=== PATIENT | male | born 1955 | race Caucasian/White ===

== ENCOUNTER 2018-09-02 20:22 | Emergency (ER) | payer MEDICAID ==
--- NOTE | 2018-09-02 20:59 | ED Physician Documentation ---
PD HPI MALE - Stated complaint Stated Complaint: MALE /CATH - Chief complaint Chief Complaint: General - History obtained from History obtained from: Patient, Family - History of Present Illness Timing - onset: Today Timing - duration: Hours Timing - details: Gradual onset, Still present Associated symptoms: Unable to urinate, Bob problem PD HPI MALE CONTRIB FACTORS: Indwelling catheter Similar symptoms before: Diagnosis (clogged catheter) - Additional information Additional information: 63-year-old male with type 2 diabetes has an indwelling Bob catheter present that he has had for the past year. He has had to have this changed about every 6 weeks and is periodically had this clogged up and stop draining. He feels that this is happened again where he is not getting any urine output from the catheter and feels his bladder is full. He does have some sediment in the catheter which happens frequently and he is not on antibiotic prophylaxis. He does not feel ill and he has not had fever. He states that his blood sugars have been running normal. Review of Systems Constitutional: denies: Fever Eyes: denies: Decreased vision Ears: denies: Ear pain Nose: denies: Congestion Throat: denies: Sore throat Respiratory: denies: Cough GI: reports: Nausea. denies: Abdominal Pain, Vomiting : reports: Bob Problem Skin: denies: Rash Musculoskeletal: denies: Neck pain, Back pain, Extremity pain PD PAST MEDICAL HISTORY - Past Medical History Past Medical History: Yes Cardiovascular: None Endocrine/Autoimmune: Type 2 diabetes, Other : Indwelling catheter HEENT: Chronic vision loss Psych: None Musculoskeletal: None Other Past Medical History: neuropathy - Past Surgical History Past Surgical History: Yes - Allergies Allergies/Adverse Reactions: Allergies Allergy/AdvReac Type Severity Reaction Status Date / Time nitrofurantoin AdvReac Nausea Verified 09/02/18 20:28 [From Macrobid] Sulfa (Sulfonamide AdvReac Nausea Verified 09/02/18 20:28 Antibiotics) - Social History Does the pt smoke?: No Smoking Status: Never smoker Does the pt drink ETOH?: No Does the pt have substance abuse?: No - Immunizations Immunizations are current?: Yes - POLST Patient has POLST: No PD ED PE NORMAL - Vitals Vital signs reviewed: Yes (tachy and hypertensive ) - General General: Alert and oriented X 3, No acute distress, Well developed/nourished - HEENT HEENT: Atraumatic, PERRL, EOMI - Cardiac Cardiac: RRR, No murmur - Respiratory Respiratory: No respiratory distress, Clear bilaterally - Abdomen Abdomen: Soft, Non tender - Back Back: No CVA TTP, No spinal TTP - Derm Derm: Normal color, Warm and dry, No rash - Extremities Extremities: No deformity, No edema - Neuro Neuro: Alert and oriented X 3, 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, No motor deficit, No sensory deficit, Normal speech Eye Opening: Spontaneous Motor: Obeys Commands Verbal: Oriented GCS Score: 15 - Psych Psych: Normal mood, Normal affect Results - Vitals Vitals: Vital Signs - 24 hr 09/02/18 20:23 Temperature 36.0 C L Heart Rate 105 H Respiratory 19 Rate Blood Pressure 156/80 H O2 Saturation 98 Oxygen O2 Source Room air - Labs Labs: Laboratory Tests 09/02/18 21:05 Urine Color YELLOW Urine Clarity HAZY Urine pH 5.5 Ur Specific [place] 1.010 Urine Protein NEGATIVE Urine Glucose (UA) 500 H Urine Ketones NEGATIVE Urine Occult Blood SMALL H Urine Nitrite POSITIVE H Urine Bilirubin NEGATIVE Urine Urobilinogen 0.2 (NORMAL) Ur Leukocyte Esterase SMALL H Urine RBC 11-25 H Urine WBC 11-25 H Urine WBC Clumps PRESENT Ur Squamous Epith Cells NONE SEEN Urine Bacteria Few Urine Yeast PRESENT Ur Microscopic Review INDICATED Urine Culture Comments INDICATED Procedures - IVC sono (time) 2049 Bedside IVC sono: IVC measures (cm) (1.38), Dehydration (mild at est 500ml deficit) PD MEDICAL DECISION MAKING - ED course Complexity details: reviewed results, re-evaluated patient, considered differential, d/w patient, d/w family ED course: 63-year-old diabetic male with an indwelling Bob catheter has decreased output from the catheter he does have a full bladder on bedside ultrasound exam and a new Bob catheter is placed which drains clear urine. The patient's inferior vena cava is interrogated for dehydration he has minimal dehydration. Departure - Departure Disposition: 01 Home, Self Care Clinical Impression: Bob catheter problem Qualifiers: Encounter type: initial encounter Qualified Code(s): T83.9XXA - Unspecified complication of genitourinary prosthetic device, implant and graft, initial encounter Urinary tract infection associated with catheterization of urinary tract Qualifiers: Indwelling urinary catheter type: indwelling urethral catheter Encounter type: initial encounter Qualified Code(s): T83.511A - Infection and inflammatory reaction due to indwelling urethral catheter, initial encounter; N39.0 - Urinary tract infection, site not specified Condition: Stable Instructions: ED UTI Cystitis Male, ED Catheter Care Bob Follow-Up: Your, urologist [Other] Comments: Today it appears there are white blood cells and bacteria as well as bacterial breakdown products in the urine consistent with an infection and we have given you a dose of ceftriaxone. Call your urologist tomorrow about further antibiotic use. The culture should return sensitivities and an organism in 2 to 3 days.
[2018-09-02 21:37] LABS: BILIRUBIN,URINE NEGATIVE (NEGATIVE); GLUCOSE, URINE (UA) 500 mg/dL (NEGATIVE); KETONES,URINE (UA) NEGATIVE (NEGATIVE); LEUKOCYTE ESTERASE, URINE SMALL (NEGATIVE); NITRITE,URINE POSITIVE (NEGATIVE); OCCULT BLOOD,URINE SMALL (NEGATIVE); PH,URINE 5.5 PH (5.0-7.5); PROTEIN,URINE NEGATIVE (NEGATIVE); UROBILINOGEN,URINE 0.2 (NORMAL) E.U./dL (NORMAL)
[2018-09-02 21:42] LABS: CLARITY,URINE HAZY (CLEAR)
[2018-09-02 21:50] LABS: BACTERIA,URINE Few /HPF (None Seen); SQUAMOUS EPITHELIAL CELL,UR NONE SEEN (<= Few); WBC CLUMPS,URINE PRESENT; YEAST,URINE PRESENT
[2018-09-02] MEDS ORDERED: cefTRIAXone 1 GM VIAL IM STA (21:54)
[2018-09-02] MEDS ORDERED: LIDOCAINE 1% 2 ML VIAL MC ONE (21:54)
[2018-09-02 22:09] VITALS: BP 140/76
== END 2018-09-02 22:13 | disposition home or self-care (01) ==
LOC: ED 20:22
DX: T83.091A Other mechanical complication of indwelling urethral catheter, initial encounter (principal); T83.511A Infection and inflammatory reaction due to indwelling urethral catheter, initial encounter; N39.0 Urinary tract infection, site not specified; E11.9 Type 2 diabetes mellitus without complications
CPT/HCPCS: 51702; 51703; 51798; 81001; 81003; 87077; 87086; 87181; 96372; 99282; 99283